=== PATIENT | female | born 1980 | race Caucasian/White ===

== ENCOUNTER 2016-11-16 16:23 | Emergency (ER) | payer OTHER | END 2016-11-16 20:00 | disposition home or self-care (01) | LOC: ER1 16:23 | DX: Z53.21 Procedure and treatment not carried out due to patient leaving prior to being seen by health care provider (principal) ==

== ENCOUNTER 2016-12-08 23:22 | Emergency (ER) | payer OTHER | END 2016-12-09 03:00 | disposition left against medical advice (07) | LOC: ER1 23:22 | DX: Z53.21 Procedure and treatment not carried out due to patient leaving prior to being seen by health care provider (principal) ==